=== PATIENT | male | born 1995 | race Caucasian/White ===

== ENCOUNTER 2023-05-08 01:58 | Emergency (ER) | payer MEDICAID ==
[~2023-05-08] VITALS: Ht 149.9 cm; Wt 66.7 kg
[2023-05-08] MEDS ORDERED: ondansetron 4mg rapidly disintigrating tab PO ONE (02:30)
[2023-05-08] MEDS ORDERED: normal saline 1000ml 1,000 ML IV ONE (02:30)
[2023-05-08] MEDS ORDERED: ondansetron/PF 4mg/2ml inj IV ONE (02:30)
[2023-05-08] MEDS ORDERED: ONDA8TAB13 PO (05:19)
[2023-05-08 05:33] VITALS: BP 93/68; PULSE 112; RESP 16; TEMP 98; O2SAT 93
== END 2023-05-08 05:38 | disposition home or self-care (01) ==
LOC: ER 01:58
DX: R11.10 Vomiting, unspecified (principal)
CPT/HCPCS: 99285